=== PATIENT | female | born 1955 | race Caucasian/White ===

== ENCOUNTER → 2024-08-15 | Outpatient (CLI) | payer MEDICARE, MEDICAID | END | disposition home or self-care (01) | LOC: Rad HDHVI 10:56 | PROVIDERS: ATTEND Internal Medicine Cardiovascular Disease | DX: I10 Essential (primary) hypertension (principal); R06.02 Shortness of breath | CPT/HCPCS: 93306 ==

== ENCOUNTER → 2024-09-24 | Outpatient (CLI) | payer MEDICARE, MEDICAID ==
--- NOTE | 2024-09-24 12:23 | DVH ---
Procedure: XY CHEST TWO VIEWS ROUTINE 09/24/2024 12:46 PM Indication: SOB. Comparison: None TECHNIQUE: XY CHEST TWO VIEWS ROUTINE FINDINGS: Medical devices: None. Cardiomediastinal: The heart is normal in size. Pulmonary vasculature is within normal limits. Lungs: No focal pulmonary opacity is seen. The costophrenic angles are clear. No pneumothorax. Bones/soft tissues: No acute abnormality is noted. Cholecystostomy clips are seen in the right upper abdomen. IMPRESSION: 1. No acute cardiopulmonary disease.
== END | disposition home or self-care (01) ==
LOC: Rad HDHVI 10:50
PROVIDERS: ATTEND Internal Medicine Cardiovascular Disease
DX: R06.02 Shortness of breath (principal); R07.9 Chest pain, unspecified; Z90.49 Acquired absence of other specified parts of digestive tract
CPT/HCPCS: 71046

== ENCOUNTER → 2024-09-25 | Outpatient (CLI) | payer MEDICARE, MEDICAID ==
[2024-09-25 12:50] LABS: Base Excess 0.3 mmol/L (-2.0-3.0)
== END | disposition home or self-care (01) ==
LOC: RT 12:05
PROVIDERS: ATTEND Internal Medicine Cardiovascular Disease
DX: F45.8 Other somatoform disorders (principal)
CPT/HCPCS: 36600; 82805

== ENCOUNTER → 2024-10-11 | Outpatient (CLI) | payer MEDICARE, MEDICAID ==
[~2024-10-11] VITALS: Ht 30.5 cm; Wt 0.5 kg
[~2024-10-11] MED LIST: CYANOCOBALAMIN (B-12) 1000 MCG/1 ML VIAL ONE; PATIENTS OWN MEDICATION (FERRLECIT 125 MG) IV ONE; SODIUM FERRIC GLUC CPLEX 62.5MG/5ML VIAL IV ONE
[2024-10-11 11:49] VITALS: BP 149/71; PULSE 74; RESP 16; O2SAT 99
[2024-10-11] MEDS: SODIUM FERR GLUC 62.5MG/5ML 110 ML IV ONE (12:47)
[2024-10-11] MEDS: CYANOCOBALAMIN (B-12) 1000 MCG/1 ML VIAL IM ONE (13:08)
[2024-10-11 13:11] VITALS: BP 116/69; PULSE 65; RESP 16; O2SAT 99
== END | disposition home or self-care (01) ==
LOC: CHF HDHVI 11:54
PROVIDERS: ATTEND Internal Medicine Cardiovascular Disease
DX: D64.9 Anemia, unspecified (principal); I10 Essential (primary) hypertension; E78.00 Pure hypercholesterolemia, unspecified; E11.21 Type 2 diabetes mellitus with diabetic nephropathy; Z90.49 Acquired absence of other specified parts of digestive tract
CPT/HCPCS: 96365; 96372; G0463; J2916; J3420

== ENCOUNTER → 2024-10-15 | Outpatient (CLI) | payer MEDICARE, MEDICAID ==
[~2024-10-15] VITALS: Ht 154.9 cm; Wt 96.2 kg
[2024-10-15 11:09] VITALS: BP 134/65; PULSE 68; RESP 18; O2SAT 97
[2024-10-15] MEDS: PATIENTS OWN MEDICATION (FERRLECIT 125 MG) IV ONE (11:09)
[2024-10-15] MEDS: SODIUM FERRIC GLUC CPLEX 62.5MG/5ML VIAL IV ONE (11:37)
[2024-10-15 12:32] VITALS: BP 128/73; PULSE 71; RESP 18; O2SAT 98
== END | disposition home or self-care (01) ==
LOC: CHF HDHVI 11:04
PROVIDERS: ATTEND Internal Medicine Cardiovascular Disease
DX: D64.9 Anemia, unspecified (principal); I10 Essential (primary) hypertension; E11.9 Type 2 diabetes mellitus without complications; E78.00 Pure hypercholesterolemia, unspecified; Z90.49 Acquired absence of other specified parts of digestive tract
CPT/HCPCS: 96365; G0463; J2916

== ENCOUNTER → 2024-10-22 | Outpatient (CLI) | payer MEDICARE, MEDICAID ==
[~2024-10-22] MED LIST changes: -CYANOCOBALAMIN (B-12) 1000 MCG/1 ML VIAL ONE; +FERRELCIT IV ONE; -PATIENTS OWN MEDICATION (FERRLECIT 125 MG) IV ONE; -SODIUM FERRIC GLUC CPLEX 62.5MG/5ML VIAL IV ONE
[2024-10-22 13:40] VITALS: BP 158/80; PULSE 67; RESP 18; O2SAT 98
[2024-10-22] MEDS: SODIUM FERR GLUC 62.5MG/5ML 110 ML IV ONE (14:05)
[2024-10-22] MEDS: SODIUM FERRIC GLUC CPLEX 62.5MG/5ML VIAL IV ONE (14:07)
[2024-10-22 15:10] VITALS: BP 146/77; PULSE 72; RESP 18; O2SAT 98
== END | disposition home or self-care (01) ==
LOC: CHF HDHVI 13:32
PROVIDERS: ATTEND Internal Medicine Cardiovascular Disease
DX: D64.9 Anemia, unspecified (principal); R53.83 Other fatigue; I10 Essential (primary) hypertension; E11.21 Type 2 diabetes mellitus with diabetic nephropathy; E78.00 Pure hypercholesterolemia, unspecified
CPT/HCPCS: 96365; G0463; J2916

== ENCOUNTER → 2025-02-25 | Outpatient (CLI) | payer MEDICARE, MEDICAID ==
[~2025-02-25] MED LIST changes: +ALPR1TAB2 PO; +DULO60CA41 PO; +ESOM40CA39 PO; -FERRELCIT IV ONE; +FURO1TAB33 PO; +LOSA-535 PO; +MAGN100T9 PO; +METO-289 PO; +POTA-215 PO; +SEMA2INJ3 SC; +TADA20TA33 PO; +ZOLP5TAB PO
[2025-02-25 10:30] VITALS: BP 123/68; PULSE 76; RESP 16; O2SAT 97
[2025-02-25 10:45] VITALS: BP 126/62; PULSE 73; RESP 16; O2SAT 97
--- NOTE | 2025-02-25 14:53 | DVH ---
XY CHEST TWO VIEWS ROUTINE CLINICAL HISTORY: PRE OP/pain COMPARISON: XY CHEST TWO VIEWS ROUTINE on DOS: 09/24/24 TECHNIQUE: Frontal and lateral view of the chest was obtained FINDINGS: Lines and Tubes: None Lungs: No focal consolidation. Pleura: No effusion. No pneumothorax. Cardiomediastinal contours: Unremarkable Bones: No acute osseous abnormality. IMPRESSION: No acute cardiopulmonary disease.
== END | disposition home or self-care (01) ==
LOC: Rad HDHVI 10:02
PROVIDERS: ATTEND Internal Medicine Cardiovascular Disease
DX: Z01.818 Encounter for other preprocedural examination (principal); I44.4 Left anterior fascicular block; R53.83 Other fatigue; R53.81 Other malaise
CPT/HCPCS: 71046; 93005; G0463

== ENCOUNTER 2025-02-27 07:20 | Day surgery (SDC) | payer MEDICARE, MEDICAID ==
[2025-02-25 12:23] LABS: Basophils # (auto) 0 10 ^3/uL (0-0.2); Basophils % (auto) 0.5 % (0.0-2.0); Eosinophils # (auto) 0.1 10 ^3/uL (0-0.8); Eosinophils % (auto) 1.5 % (0.0-7.0); Hematocrit 35.9 % (36.0-46.0); Hemoglobin 11.9 g/dL (12.2-16.2); Lymphocytes # (auto) 1.3 10 ^3/uL (0.4-5.4); Lymphocytes % (auto) 15.7 % (10.0-50.0); Mean Corpuscular Hemoglobin 26.9 pg (28.0-32.0); Mean Corpuscular Hgb Conc. 33.1 g/dL (32.0-36.0); Mean Corpuscular Volume 81.4 fL (80.0-100.0); Monocytes # (auto) 0.5 10 ^3/uL (0-1.3); Monocytes % (auto) 5.7 % (0.0-12.0); Neutrophils # (auto) 6.1 10 ^3/uL (1.6-8.6); Neutrophils % (auto) 76.6 % (37.0-80.0); Platelet Count (auto) 392 10^3/uL (140-450); Red Blood Cells 4.41 10^6/uL (4.0-5.20); Red Cell Distribution Width 14.5 % (11.8-14.3)
[2025-02-25 12:36] LABS: INR 0.94 (0.9-1.15); Partial Thromboplastin Time 30.8 SEC (24.5-34.5)
[2025-02-25 12:38] LABS: Chloride 98 mmol/L (98-107); Potassium 4.6 mmol/L (3.5-5.1)
[2025-02-25 12:39] LABS: Anion Gap 6 (5-15); Calcium 10.2 mg/dL (8.7-10.4); Carbon Dioxide 30 mmol/L (20-31)
[2025-02-25 12:40] LABS: Sodium 134 mmol/L (136-145)
[2025-02-25 12:44] LABS: BUN/Creatinine Ratio 16.2 (10.0-20.0); Blood Urea Nitrogen 16 mg/dL (9-23); Glucose 97 mg/dL (74-106)
[~2025-02-27] VITALS: Ht 154.9 cm; Wt 87.5 kg
[2025-02-27] MEDS ORDERED: IOHEXOL 350 MG/ML 100ML IJ ONE (11:17)
[2025-02-27] MEDS ORDERED: HEPARIN IN NS 1000Units/500mL 1,500 ML ONE (11:17)
[2025-02-27] MEDS ORDERED: fentaNYL CITRATE 100 MCG/2 ML VL ONE (11:26)
[2025-02-27] MEDS ORDERED: MIDAZOLAM HCL 2MG/2ML 2ml VIAL (1mg/ml) ONE (11:26)
[2025-02-27] MEDS ORDERED: SODIUM CHL 0.9% 0 ML ONE (11:26)
[2025-02-27] MEDS ORDERED: ANGIOMAX 250 MG VIAL IV ONE (11:26)
[2025-02-27] MEDS ORDERED: LIDOCAINE 2%HCL (LOCAL ANESTH.) INJ 20ML MDV ONE (11:27)
[2025-02-27 12:39] VITALS: BP 135/57; PULSE 87; RESP 14; TEMP 98.5; O2SAT 96
[2025-02-27 12:54] VITALS: BP 118/54; PULSE 85; RESP 16; O2SAT 93
[2025-02-27 13:09] VITALS: BP 135/71; PULSE 84; RESP 14; O2SAT 93
[2025-02-27 13:24] VITALS: BP 128/72; PULSE 84; RESP 15; O2SAT 94
[2025-02-27 13:50] VITALS: BP 135/66; PULSE 82; RESP 15; O2SAT 95
[2025-02-27 14:30] VITALS: BP 133/70; PULSE 79; RESP 13; O2SAT 95
--- NOTE | 2025-03-27 12:52 | DVHOP ---
DATE OF SURGERY: 02/27/2025 CARDIAC CATHETERIZATION REPORT PROCEDURE PERFORMED: * Selective left and right coronary angiography, ventriculogram, and right iliac angiography. * Right heart catheterization with Hamshire-Mckayla catheter. DESCRIPTION OF PROCEDURE: The patient was prepped and draped under sterile condition. A 1% Xylocaine used to anesthetize the right groin. Using a Cook needle, right femoral artery was engaged with Seldinger technique, a 6-Fijian sheath in the right femoral artery. Using 6-Fijian JL4 catheter and a 6-Fijian JR4 catheter, selective left and right coronary angiography was performed. Using 6-Fijian Pigtail catheter, ventriculogram was done. Following that, the 6-Fijian sheath was introduced in the right femoral vein. Using a 6-Fijian balloon-tipped thermodilution catheter, right-sided pressure tracing was obtained. There were no complications. The patient tolerated the procedure well. RESULTS: * Left main patent. * Left anterior descending artery without any flow restrictive lesion. * Circumflex without any flow restrictive lesion. * Right coronary artery without any flow restrictive lesion. Left ventricular function was preserved with an estimated EF of 55% with an LVEDP of 18 mmHg with no gradient across the aortic valve. Right heart catheterization/Hamshire-Mckayla catheterization showed an RA pressure of 10, RV pressure of 36/9, capillary wedge pressure of 15-18 mmHg, and the patient's PA pressure of 38/15. Thus, the patient with normal coronary anatomy. Normal left and right-sided pressures at this time. There is mild elevation in left-sided pressure, but that is secondary to the patient's anxiety and mild elevation in blood pressure. At this time, no surgical or catheter-based intervention is required. The patient has no evidence for diastolic or systolic heart failure. We will continue to follow up patient. Geovani Tan MD SA/PIO TID: [id number] RECEIPT: [id number]
== END 2025-02-27 14:43 | disposition home or self-care (01) ==
LOC: CATH 07:20
PROVIDERS: ATTEND Internal Medicine Cardiovascular Disease
DX: I25.10 Atherosclerotic heart disease of native coronary artery without angina pectoris (principal); I10 Essential (primary) hypertension; Z79.899 Other long term (current) drug therapy
CPT/HCPCS: 36415; 80048; 85025; 85610; 85730; 93460; C1760; C1894; J1644; J2250; J3010; Q9967; 99152